=== PATIENT | male | born 1975 | race Caucasian/White ===

== ENCOUNTER 2017-07-31 18:09 | Emergency (ER) | payer MEDICAID ==
[~2017-07-31] VITALS: Ht 167.6 cm; Wt 83.0 kg
[2017-07-31 18:30] VITALS: BP 111/77
== END 2017-07-31 19:14 | disposition home or self-care (01) ==
LOC: ER 18:57
DX: Z76.0 Encounter for issue of repeat prescription (principal); F32.9 Major depressive disorder, single episode, unspecified; F41.9 Anxiety disorder, unspecified; K21.9 Gastro-esophageal reflux disease without esophagitis
CPT/HCPCS: 99283

== ENCOUNTER 2017-10-09 11:52 | Emergency (ER) | payer MEDICAID | END 2017-10-09 13:07 | disposition left against medical advice (07) | LOC: ER 12:33 | DX: M54.2 Cervicalgia (principal); M54.9 Dorsalgia, unspecified; Z53.21 Procedure and treatment not carried out due to patient leaving prior to being seen by health care provider ==